=== PATIENT | female | born 1980 | race Caucasian/White ===

== ENCOUNTER 2017-05-05 19:08 | Observation (INO) ==
[2017-05-05 20:34] LABS: Bilirubin,Urine Small (Negative); Blood,Urine Negative (Negative); Color,Urine Yellow (Yellow); Glucose,Urine (UA) Normal (Normal); Ketones,Urine Negative (Negative); Leukocyte Esterase,Urine Negative (Negative); Nitrite,Urine Negative (Negative); PH,Urine 5.5 pH Units (5.0-8.0); Protein,Urine 30 mg/dL (Neg-Trace); Specific Gravity,Urine 1.023 (1.010-1.025); Urobilinogen,Urine Normal (Normal)
[2017-05-05 20:36] LABS: Bacteria,Urine None Seen per hpf (None-Few); Hyaline Casts,Urine None Seen per lpf (None-Few); Squamous Epithelial Cell,Urine Many per lpf (None-Few); WBC,Urine 0-3 per hpf (0-3)
[2017-05-05] MEDS ORDERED: 0.9 % Sodium Chloride 1,000 ML IVC ONE (20:36)
[2017-05-05] MEDS ORDERED: Ondansetron 4 MG/2 ML VIAL IVP ONE (20:36)
[2017-05-05 20:37] LABS: Clarity,Urine Slightly Hazy (Clear)
--- NOTE | 2017-05-05 20:38 | Emergency Department Note ---
Disposition Clinical Impression: Ileus, unspecified Diarrhea Qualifiers: Diarrhea type: presumed infectious Qualified Code(s): R19.7 - Diarrhea, unspecified Nausea and vomiting Qualifiers: Vomiting type: unspecified Vomiting Intractability: non-intractable Qualified Code(s): R11.2 - Nausea with vomiting, unspecified Disposition: Admitted As Inpatient Condition: Fair Time of Disposition: 23:20 Abdominal Pain HPI - General Chief Complaint: ED Abdominal Pain Stated Complaint: abd pain Time Seen by Provider: 05/05/17 20:10 Source: patient Mode of arrival: ambulatory Limitations: no limitations Nursing Notes Reviewed: Yes Vital Signs Reviewed: Yes - History of Present Illness HPI Narrative: Mrs. Berry, 36-year-old female, presents from home for evaluation of diarrhea and vomiting. She received cephalexin antibiotic 6 days ago for dental infection. 3 days ago, she began having copious loose stools with intermittent nausea and vomiting. Approximately 10+ loose stools per day and 2-3 cysts per day. No coffee-ground emesis, no hematochezia, no bilious vomiting, no hematochezia, no melena. Patient is frustrated that her persistent loose bowels and has a general abdominal age which she describes as her insides being twisted. PMH: Systemic sclerosis with raynauds ROS: Positive as above Negative: Fever, chills, chest pains, palpitations, unusual back pains, dysuria , vertigo, dyspnea, diaphoresis. Pain Scale: 7 - Related Data Home Medications Medication Instructions Recorded Confirmed Aspirin [Lo-Dose Aspirin EC] 81 mg PO DAILY 09/23/16 12/10/16 Cilostazol 50 mg PO BID 09/23/16 12/10/16 FLUoxetine HCl [PROzac] 20 mg PO DAILY 09/23/16 12/10/16 NIFEdipine [Nifedipine ER] 30 mg PO DAILY 09/23/16 12/10/16 Omeprazole 40 mg PO DAILY 09/23/16 12/10/16 Sildenafil Citrate [Revatio] 20 mg PO BID 09/23/16 12/10/16 Slow Fe 45 mg PO DAILY 09/23/16 12/10/16 Previous Rx's Medication Instructions Recorded Iron Fum,Ps/FA/Vit B with C #9 1 each PO BID #60 capsule 09/23/16 [Integra Plus Capsule] Allergies Allergy/AdvReac Type Severity Reaction Status Date / Time Hydromorphone [From Dilaudid] AdvReac Vomiting Verified 12/10/16 11:33 Penicillins AdvReac Rash Verified 12/10/16 11:33 sulfamethoxazole AdvReac Hives Verified 12/10/16 11:33 [From Bactrim] trimethoprim [From Bactrim] AdvReac Hives Verified 12/10/16 11:33 All systems ED: reviewed and negative except as stated. Review of Systems: As Per HPI Abdominal Pain PMH - Past Medical History Medical history: Reports: other Female Surgical History: Reports: Adenoidectomy, orthopedic, other Psychiatric history: Reports: no psych history - Social History Smoking status: Former smoker Alcohol use: Reports: none Drug use: Reports: none Physical Exam Vital Signs Reviewed General: Patient is alert, oriented, and in no acute distress. HEENT: No facial asymmetry. Head is normocephalic and atraumatic. PERRLA, EOMI. because of tachycardia. Trachea midline. Cardiovascular: Heart regular rate and rhythm without clicks, rubs, gallops, or murmurs. No JVD. PMI nondisplaced. Lateral radial pulses 2/4 and equal. No pedal edema. Respiratory: Symmetric chest rise with good respiratory effort. Bilateral breath sounds are clear without wheezing, crackles, or rhonchi. Abdomen: Obese. Bowel sounds present normoactive x-4 quadrants. Abdomen is soft, nondistended. Generalized tenderness with no focal point tenderness. No rebound tenderness. Musculoskeletal: Spontaneously moving all extremities. Neuro: Alert and oriented x4. Sensation light touch intact. Psych: Patient's affect is appropriate for situation. - General Limitations: no limitations General appearance: alert, in no apparent distress Course Course Narrative: Ovarian torsion, appendicitis, and obstruction unlikely spine history and physical. Concern for antibiotic-induced diarrhea versus possible colitis. We will look for C. difficile toxin, electrolyte abnormalities, renal dysfunction, and will attempt to improve the patient's symptoms while results are pending. Serum hematology is unremarkable. Serum chemistries are grossly unremarkable. Urinalysis does not indicate UTI. CT abdomen and pelvis concerning for small bowel dilation likely ileus in the context of patient's bowel movements, vomiting, and lack of surgical abdominal history. Radiology read expressed concern for small bowel obstruction. I discussed the above the patient was in agreement to admission for continued evaluation and management. I discussed the patient with on-call surgery, Dr. Fraser, who agrees to see the patient in consult. I discussed the patient with the admitting hospitalist, Dr. Aguiar, who agrees to accept the patient was surgery following. Abdomen/Pelvis CT 05/05/17 20:36 IMPRESSION: 1. Moderate dilation of small bowel, with evidence of stasis, evidenced by fecalization of contents of the distal small bowel. The small bowel obstruction is the primary concern. The etiology of that obstruction is not clear based on this exam. Consider further evaluation with small bowel follow-through. 2. There is a large amount of free pelvic fluid, again, the etiology of which is unclear. The adnexal regions are not well evaluated. 3. Small hiatal hernia. 4. Small right pleural effusion with adjacent airspace disease. D/ / Liam Trejo MD / Liam Trejo MD Interpreting Provider: Liam Trejo MD Vital Signs Temperature 97.8 F 05/05/17 19:28 Pulse Rate 102 05/05/17 19:28 Respiratory Rate 16 05/05/17 19:28 Blood Pressure 116/87 05/05/17 19:28 O2 Sat by Pulse Oximetry 97 05/05/17 19:28 Temperature 97.8 F 05/05/17 19:28 Pulse Rate 102 05/05/17 19:28 Respiratory Rate 16 05/05/17 19:28 Blood Pressure 116/87 05/05/17 19:28 O2 Sat by Pulse Oximetry 97 05/05/17 19:28 Oxygen Delivery Oxygen Delivery Room Air Abdominal Pain - Lab Data Result diagrams: 05/05/17 21:36 05/05/17 21:36 Lab Results 05/05/17 05/05/17 05/05/17 Range/Units 20:12 20:12 20:38 WBC (4.3-11.1) K/mcL RBC (3.82-4.97) M/mcL Hgb (11.5-15.4) g/dL Hct (35.3-44.9) % MCV (83.0-100.0) fL MCH (28.0-33.3) pg MCHC (31.6-35.5) g/dL RDW (11.5-14.5) % Plt Count (140-400) K/mcL MPV (9.4-12.4) fL Immature Gran % (0-4) % Seg Neutrophils % % Lymphocytes % % Monocytes % % Eosinophils % % Basophils % % Neutrophils # (1.6-8.9) K/mcL Lymphocytes # (0.6-4.6) K/mcL Monocytes # (0.0-1.3) K/mcL Eosinophils # (0.0-0.6) K/mcL Basophils # (0.0-0.2) K/mcL Sodium (136-145) mEq/L Potassium (3.5-5.1) mEq/L Chloride (98-107) mEq/L Carbon Dioxide (23-29) mEq/L BUN (6-20) mg/dL Creatinine (0.60-1.20) mg/dL Est GFR ( Amer) (> 60) Est GFR (Non-Af Amer) (> 60) BUN/Creatinine Ratio (6-26) Glucose (70-105) mg/dL Calculated Osmolality (280-300) Calcium (8.6-10.3) mg/dL Total Bilirubin (0.3-1.0) mg/dL Direct Bilirubin (0.0-0.2) mg/dL Indirect Bilirubin (0.0-1.2) mg/dL AST (13-39) Units/L ALT (7-52) Units/L Alkaline Phosphatase (34-104) Units/L Serum Total Protein (6.4-8.9) g/dL Albumin (3.5-5.7) g/dL Globulin (2.4-3.5) g/dL Albumin/Globulin Ratio (1.1-2.2) Lipase (11-82) Units/L Urine Color Yellow (Yellow) Urine Clarity Slightly Hazy (Clear) Urine pH 5.5 (5.0-8.0) pH Units Ur Specific Delancey 1.023 (1.010-1.025) Urine Protein 30 H (Neg-Trace) mg/dL Urine Glucose (UA) Normal (Normal) mg/dL Urine Ketones Negative (Negative) mg/dL Urine Blood Negative (Negative) Urine Nitrite Negative (Negative) Urine Bilirubin Small H (Negative) Urine Urobilinogen Normal (Normal) mg/dL Ur Leukocyte Esterase Negative (Negative) Urine Microscopic RBC 5-15 H (0-3) per hpf Urine Microscopic WBC 0-3 (0-3) per hpf Ur Squamous Epith Cells Many H (None-Few) per lpf Urine Bacteria None Seen (None-Few) per hpf Hyaline Casts None Seen (None-Few) per lpf Ur Culture Indicated? NO (NO) Urine Test Negative (Negative) Stl C. diff Tox B Gene Negative (Negative) 05/05/17 05/05/17 Range/Units 21:36 21:36 WBC 9.4 (4.3-11.1) K/mcL RBC 4.83 (3.82-4.97) M/mcL Hgb 14.9 (11.5-15.4) g/dL Hct 44.3 (35.3-44.9) % MCV 91.7 (83.0-100.0) fL MCH 30.8 (28.0-33.3) pg MCHC 33.6 (31.6-35.5) g/dL RDW 13.2 (11.5-14.5) % Plt Count 254 (140-400) K/mcL MPV 10.7 (9.4-12.4) fL Immature Gran % 0.3 (0-4) % Seg Neutrophils % 82.7 % Lymphocytes % 10.2 % Monocytes % 6.4 % Eosinophils % 0.3 % Basophils % 0.1 % Neutrophils # 7.8 (1.6-8.9) K/mcL Lymphocytes # 1.0 (0.6-4.6) K/mcL Monocytes # 0.6 (0.0-1.3) K/mcL Eosinophils # 0.0 (0.0-0.6) K/mcL Basophils # 0.0 (0.0-0.2) K/mcL Sodium 138 (136-145) mEq/L Potassium 3.3 L (3.5-5.1) mEq/L Chloride 104 (98-107) mEq/L Carbon Dioxide 25 (23-29) mEq/L BUN 7 (6-20) mg/dL Creatinine 0.98 (0.60-1.20) mg/dL Est GFR ( Amer) > 60 (> 60) Est GFR (Non-Af Amer) > 60 (> 60) BUN/Creatinine Ratio 7 (6-26) Glucose 118 H (70-105) mg/dL Calculated Osmolality 285 (280-300) Calcium 9.9 (8.6-10.3) mg/dL Total Bilirubin 0.5 (0.3-1.0) mg/dL Direct Bilirubin 0.0 (0.0-0.2) mg/dL Indirect Bilirubin 0.5 (0.0-1.2) mg/dL AST 23 (13-39) Units/L ALT 20 (7-52) Units/L Alkaline Phosphatase 83 (34-104) Units/L Serum Total Protein 7.7 (6.4-8.9) g/dL Albumin 4.6 (3.5-5.7) g/dL Globulin 3.1 (2.4-3.5) g/dL Albumin/Globulin Ratio 1.5 (1.1-2.2) Lipase 10 L (11-82) Units/L Urine Color (Yellow) Urine Clarity (Clear) Urine pH (5.0-8.0) pH Units Ur Specific Delancey (1.010-1.025) Urine Protein (Neg-Trace) mg/dL Urine Glucose (UA) (Normal) mg/dL Urine Ketones (Negative) mg/dL Urine Blood (Negative) Urine Nitrite (Negative) Urine Bilirubin (Negative) Urine Urobilinogen (Normal) mg/dL Ur Leukocyte Esterase (Negative) Urine Microscopic RBC (0-3) per hpf Urine Microscopic WBC (0-3) per hpf Ur Squamous Epith Cells (None-Few) per lpf Urine Bacteria (None-Few) per hpf Hyaline Casts (None-Few) per lpf Ur Culture Indicated? (NO) Urine Test (Negative) Stl C. diff Tox B Gene (Negative) Attestation Statement - Attestation Attestation: I, Edy Heller, examined this patient and my medical decision-making was reviewed with the DYEING MACHINE TENDER/PA/Advanced Practice Nurse/Resident Physician. I agree with the documented findings, disposition and treatment plan as described except to the extent set forth below. 36-year-old female presents emergency Department with concerns of abdominal pain. Patient's pain is generalized and she is, unable to localize her symptoms. On exam she does not have rigidity however she is guarding diffusely. CT of the abdomen and pelvis shows a possible small bowel obstruction and a large amount of fluid within the pelvis. It is unclear the etiology of the CT findings. It is unlikely a small bowel obstruction as patient has not had a history of significant abdominal surgeries however patient will require admission to hospital for further care and evaluation of her abdominal pain and evaluation by general surgery for small bowel obstruction versus ileus.
[2017-05-05 21:49] LABS: Basophils % 0.1 %; Eosinophils % 0.3 %; Hematocrit 44.3 % (35.3-44.9); Hemoglobin 14.9 g/dL (11.5-15.4); Immature Granulocytes % 0.3 % (0-4); Lymphocytes % 10.2 %; Mean Corpuscular HGB Conc 33.6 g/dL (31.6-35.5); Mean Corpuscular Hemoglobin 30.8 pg (28.0-33.3); Mean Corpuscular Volume 91.7 fL (83.0-100.0); Mean Platelet Volume 10.7 fL (9.4-12.4); Monocytes # 0.6 K/mcL (0.0-1.3); Monocytes % 6.4 %; Neutrophils # 7.8 K/mcL (1.6-8.9); Platelet Count 254 K/mcL (140-400); Red Blood Count 4.83 M/mcL (3.82-4.97); Red Cell Distribution Width 13.2 % (11.5-14.5); Segmented Neutrophils % 82.7 %
[2017-05-05 22:11] LABS: Alanine Aminotransferase 20 Units/L (7-52); Albumin 4.6 g/dL (3.5-5.7); Albumin/Globulin Ratio 1.5 (1.1-2.2); Alkaline Phosphatase 83 Units/L (34-104); Aspartate Amino Transferase 23 Units/L (13-39); BUN/Creatinine Ratio 7 (6-26); Bilirubin,Indirect 0.5 mg/dL (0.0-1.2); Bilirubin,Total 0.5 mg/dL (0.3-1.0); Blood Urea Nitrogen 7 mg/dL (6-20); Calcium 9.9 mg/dL (8.6-10.3); Carbon Dioxide 25 mEq/L (23-29); Chloride 104 mEq/L (98-107); Globulin 3.1 g/dL (2.4-3.5); Glucose 118 mg/dL (70-105); Lipase 10 Units/L (11-82); Osmolality,Calculated 285 (280-300); Potassium 3.3 mEq/L (3.5-5.1); Sodium 138 mEq/L (136-145); Total Protein 7.7 g/dL (6.4-8.9); eGFR For African Americans > 60 (> 60); eGFR For Non-African Americans > 60 (> 60)
[2017-05-05] MEDS ORDERED: Ondansetron 4 MG/2 ML VIAL IVP PRN (22:46)
[2017-05-05] MEDS ORDERED: Naloxone 0.4 MG/ML INJ IVP PRN (22:46)
[2017-05-05] MEDS ORDERED: 0.9 % Sodium Chloride w KCl 20 MEQ/1,000 ML MLS IVC SCH (23:00)
--- NOTE | 2017-05-06 | Internal Med History&Physical ---
<Erwin Clement - Last Filed: 05/06/17 00:24> Date of Encounter: 05/06/17 Time of Encounter: 23:51 Assessment and Plan (1) Diarrhea Current visit: Yes Status: Acute Nausea, vomiting, diarrhea for approximately 3 days' duration, intractable Source likely infectious in nature/colitis considering recent treatment with Keflex C. difficile is negative at this time, no obvious signs of systemic infection I will start the patient on ciprofloxacin and Flagyl We will rehydrate with IV fluids Qualifiers: Diarrhea type: presumed infectious Qualified Code(s): R19.7 - Diarrhea, unspecified (2) Nausea and vomiting Current visit: Yes Status: Acute Nausea/non-bilious vomiting likely secondary to GI infection vs. colitis Patient remains NPO due to abdominal pain We will give IVF, Zofran PRN for nausea Qualifiers: Vomiting type: cyclical vomiting Vomiting Intractability: non-intractable Qualified Code(s): G43.A0 - Cyclical vomiting, not intractable (3) Abdominal pain Current visit: Yes Status: Acute Abdominal pain, severe and generalized likely secondary to enterocolitis vs ileus, Currently stable CT abdomen/pelvis shows fecalization of distal small bowel which likely represents ileus Patient has voluntary guarding with exquisite tenderness to palpation of all four quadrants of the abdomen, upper > lower SBO is low on differential as patient has no history of abdominal surgery Surgery (Dr. Fraser) was consulted from the ED and will see the patient in the morning We will maintain NPO diet, provide pain management, monitor vital signs, and give zofran for nausea Qualifiers: Abdominal location: generalized Qualified Code(s): R10.84 - Generalized abdominal pain (4) Free fluid in pelvis Current visit: Yes Status: Acute Free fluid in pelvis as demonstrated by CT Abdomen/Pelvis, uncertain etiology The patient does appear to have a GI infection, however this is not necessarily a likely source for fluid in the pelvis The Adnexal region was not well evaluated on CT, so we will order a pelvic ultrasound to rule out ovarian pathology as a source for ascites Significantly, the patient had negative urine test, and negative UA Pending pelvic US results, we will consult Fixed Route Operator in the AM (5) Systemic scleroses Current visit: Yes Status: Acute Currently stable, continue home meds (6) Hypokalemia Current visit: Yes Status: Acute IVF with 20mEQ potassium 40mEq potassium chloride IVPB Riders (7) DVT prophylaxis Current visit: Yes Status: Acute SQ Heparin Internal Medicine - H&P: HPI Chief complaint: Abdominal pain Admitted From: Emergency Dept Plans for Post Hospital Care: Home History of present illness: Ms. Berry is a 36 year old female with history of systemic sclerosis who presents to the ED with three day history of severe abdominal pain, intractable diarrhea and nausea/vomiting. She says that she saw a dentist about 6 days ago for a dental infection and was given keflex, which she says she's taken many times. About three days ago she began to have severe diarrhea that began as loose stools and has transitioned to watery diarrhea. She has been experiencing this 15-20 time each day, and feels that she has been running to the bathroom constantly. She says that shortly after that began, she also started to have nausea and vomiting. She has been experiencing severe abdominal pain with this as well, 10/13 which is constant, non-radiating, and feels like severe menstrual cramps that are unremitting. The pain is primarily located in her upper abdomen , but she says that there is some tenderness in her lower abdomen as well. She says the pain does not radiate anywhere. Nothing makes the pain any better, but lying on either side seems to amplify the pain very significantly. She does say that the last thing she ate was ramen noodles earlier today which she was able to hold down, but that she has not been able to keep food down prior to that. She denies hematemasis, hematochezia or melena. She has not experienced any chest pains, shortness of breath, or changes in mental status. She also denies any urinary symptoms. Finally, she denies any abdominal surgeries. She has no other acute complains. Past Med Surg Social Fam HX - Past Medical History Medical history: other Psychiatric history: no psych history - Social History Smoking Status: Former smoker Smokeless Tobacco Status: No Alcohol use: none Drug use: none Internal Medicine - H&P: Meds Aspirin [Lo-Dose Aspirin EC] 81 mg PO DAILY 09/23/16 [History] Cilostazol 50 mg PO BID 09/23/16 [History] FLUoxetine HCl [PROzac] 20 mg PO DAILY 09/23/16 [History] Iron Fum,Ps/FA/Vit B with C #9 [Integra Plus Capsule] 1 each PO BID #60 capsule 09/23/16 [Rx] NIFEdipine [Nifedipine ER] 30 mg PO DAILY 09/23/16 [History] Omeprazole 40 mg PO DAILY 09/23/16 [History] Sildenafil Citrate [Revatio] 20 mg PO BID 09/23/16 [History] Slow Fe 45 mg PO DAILY 09/23/16 [History] 3 Allergy/AdvReac Type Severity Reaction Status Date / Time Hydromorphone [From Dilaudid] AdvReac Vomiting Verified 12/10/16 11:33 Penicillins AdvReac Rash Verified 12/10/16 11:33 sulfamethoxazole AdvReac Hives Verified 12/10/16 11:33 [From Bactrim] trimethoprim [From Bactrim] AdvReac Hives Verified 12/10/16 11:33 All Systems PM: A 10-system review of systems was performed and is negative for pertinent findings except as documented above in the HPI. Review of systems: Constitutional: Denies fevers, chills, weight loss, generalized fatigue Head/Neck: Denies JONES, neck stiffness EENT: Denies vision changes/blurriness, rhinorrhea, congestion, sore throat CVS: Denies chest pain, palpitations, GONZALEZ, orthopnea, edema, PND Pulm: Denies SOB, cough, sputum, wheezing GI: Admits to abdominal pain, nausea, vomiting, watery diarrhea. Denies constipation, melena, hematochezia or hematemasis : Denies dysuria, increased frequency, urgency, hematuria Heme: Denies ease of bleeding or bruising MSK: Denies joint pain, limited ROM Skin: Denies rashes, ulcers, color changes Neuro: Denies JONES, paresthesias, focal deficits, ataxia - Constitutional Vitals: Temp Pulse Resp BP Pulse Ox 97.8 F 102 16 116/85 97 05/05/17 19:28 05/05/17 19:28 05/05/17 23:29 05/05/17 23:29 05/05/17 19:28 Exam: Gen.: Vitals noted. No acute distress. AAOx3 HEENT: oropharynx clear, Normocephalic, atraumatic Neck: Supple. No adenopathy. Cardiac: RRR, no murmur, +S1/S2 Pulmonary: CTA bilaterally, no wheezes, rales or rhonchi, equal chest expansion Abdomen: soft, BS noted and hyperactive, diffusely tender with voluntary guarding in the epigastric and RUQ, with no guarding in the lower abdomen/pelvis Back: Nontender throughout. MSK: ROM intact, no joint swelling noted Extremities: no BLE edema, nontender calf, no cyanosis or clubbing Neuro: A&Ox3, moves all extremities, no focal deficits Psych: Appropriate mood and behavior Internal Med - H&P Results - Labs CBC & Chem 7: 05/05/17 21:36 05/05/17 21:36 <Hiro Fajardo - Last Filed: 05/06/17 05:32> Date of Encounter: 05/06/17 Internal Medicine - H&P: HPI History of present illness: Ms. Berry is a 36 year old female All Systems PM: A 10-system review of systems was performed and is negative for pertinent findings except as documented above in the HPI. - Constitutional Vitals: Temp Pulse Resp BP Pulse Ox 98.0 F 73 16 100/69 94 05/06/17 03:30 05/06/17 03:30 05/06/17 03:30 05/06/17 03:30 05/06/17 03:30 Internal Med - H&P Results - Labs CBC & Chem 7: 05/06/17 04:31 05/06/17 04:31 Labs: Short CBC 05/06/17 Range/Units 04:31 WBC 5.9 (4.3-11.1) K/mcL Hgb 12.3 D (11.5-15.4) g/dL Hct 38.0 (35.3-44.9) % Plt Count 206 (140-400) K/mcL Neutrophils # 4.1 (1.6-8.9) K/mcL BMP 05/06/17 04:31 Sodium 138 Potassium 3.8 Chloride 109 H Carbon Dioxide 26 BUN 6 Creatinine 0.82 Glucose 114 H Calcium 8.3 L - Attending Attestation I have seen and examined this patient independently. I have discussed with resident physician Dr. Clement regarding the management plan. Agree with the documentation.
[2017-05-06] MEDS ORDERED: Potassium Chloride 40 MEQ, Lidocaine 1% 2 ML in D5% in Water 500 ML IVPB ONE (00:20)
[2017-05-06] MEDS ORDERED: Naloxone 0.4 MG/ML INJ IVP PRN (00:20)
[2017-05-06] MEDS ORDERED: Ketorolac 30 MG/ML VIAL IVP PRN (00:20)
[2017-05-06] MEDS ORDERED: OXYCODONE Oral CONC 10 MG/0.5 ML ORAL.SYG SL PRN ×2 (00:20)
[2017-05-06] MEDS: MetroNIDAZOLE 500 MG/100 ML 500 MG/100 ML BAG IVPB SCH ×4 (01:11→21:10)
[2017-05-06 05:15] LABS: Basophils % 0.3 %; Eosinophils # 0.1 K/mcL (0.0-0.6); Eosinophils % 1.5 %; Immature Granulocytes % 0.2 % (0-4); Lymphocytes % 17.6 %; Mean Corpuscular HGB Conc 32.4 g/dL (31.6-35.5); Mean Corpuscular Hemoglobin 30.4 pg (28.0-33.3); Mean Corpuscular Volume 94.1 fL (83.0-100.0); Monocytes # 0.6 K/mcL (0.0-1.3); Monocytes % 9.6 %; Neutrophils # 4.1 K/mcL (1.6-8.9); Platelet Count 206 K/mcL (140-400); Red Blood Count 4.04 M/mcL (3.82-4.97); Red Cell Distribution Width 13.2 % (11.5-14.5); Segmented Neutrophils % 70.8 %
[2017-05-06 05:16] LABS: Hemoglobin 12.3 g/dL (11.5-15.4)
[2017-05-06 05:21] LABS: BUN/Creatinine Ratio 7 (6-26); Blood Urea Nitrogen 6 mg/dL (6-20); Calcium 8.3 mg/dL (8.6-10.3); Carbon Dioxide 26 mEq/L (23-29); Chloride 109 mEq/L (98-107); Glucose 114 mg/dL (70-105); Magnesium 2.1 mg/dL (1.6-2.6); Osmolality,Calculated 284 (280-300); Potassium 3.8 mEq/L (3.5-5.1); Sodium 138 mEq/L (136-145); eGFR For African Americans > 60 (> 60); eGFR For Non-African Americans > 60 (> 60)
[2017-05-06] MEDS: Pantoprazole 40 MG VIAL IVP SCH ×2 (05:34→17:08)
[2017-05-06] MEDS: *HR* Heparin 5,000 UNIT/ML VIAL SQ SCH ×2 (05:34→17:08)
[2017-05-06] MEDS: Sildenafil Citrate 20 MG TABLET PO SCH ×2 (10:02→21:11)
[2017-05-06] MEDS: FLUoxetine 20 MG CAPSULE PO SCH (10:02)
[2017-05-06] MEDS: Aspirin Enteric Coated 81 MG Tablet PO SCH (10:03)
[2017-05-06] MEDS: NIFEdipine XL (24 HR) 30 MG TAB.ER.24 PO SCH (10:03)
--- NOTE | 2017-05-06 10:34 | Internal Med Progress Note ---
<ScottyAmrik - Last Filed: 05/06/17 14:02> Date of Encounter: 05/06/17 Time of Encounter: 10:32 - Assessment and plan (1) Small bowel obstruction Current Visit: Yes Status: Acute Assessment and plan: CT ab/pel demonstrated fecalization of distal small bowel with concern for obstruction/ileus Surgery consulted, appreciate recommendations Patient is NPO currently in preparation for possible surgery (2) Diarrhea Current Visit: Yes Status: Acute Assessment and plan: Diarrhea has resolved per patient. C. diff panel negative - Continue cipro/flagyl day 2 - Continue IV fluids Qualifiers: Diarrhea type: presumed infectious Qualified Code(s): R19.7 - Diarrhea, unspecified (3) Nausea and vomiting Current Visit: Yes Status: Acute Assessment and plan: Patient is NPO - Continue Zofran as needed for nausea. - Continue IVF Qualifiers: Vomiting type: cyclical vomiting Vomiting Intractability: non-intractable Qualified Code(s): G43.A0 - Cyclical vomiting, not intractable (4) Abdominal pain Current Visit: Yes Status: Acute Assessment and plan: Abdominal pain is unchanged per patient. Likely due to enterocolitis vs ileus. Currently stable. CT abdomen/pelvis shows fecalization of distal small bowel which may be obstruction from ileus Surgery has been consulted. Maintain NPO for now. Qualifiers: Abdominal location: generalized Qualified Code(s): R10.84 - Generalized abdominal pain (5) Free fluid in pelvis Current Visit: Yes Status: Acute Assessment and plan: Free fluid in pelvis as demonstrated by CT Abdomen/Pelvis, uncertain etiology Ulstrasound perfrpmed this morning confirmed fluid presence with follicular changes in ovaries The patient had negative urine test, and negative UA Will consider OBGYN consult (6) Systemic scleroses Current Visit: Yes Status: Acute Assessment and plan: Continue home meds (7) Hypokalemia Current Visit: Yes Status: Acute Assessment and plan: K 3.3 on admission, now up to 3.8 - Continue potassium supplementation and monitoring as needed (8) DVT prophylaxis Current Visit: Yes Status: Acute Assessment and plan: SQ heparin - Subjective Interval history: Patient seen and examined at bedside. Patient is laying in bed playing games on her phone, she is very pleasant. She states that she is still experiencing abdominal pain that is unchanged from yesterday. She does state that her diarrhea has resolved. She states that her abdominal pain is diffuse, but worse along the upper quadrants of her abdomen. Patient has the hiccups and states that she is hungry, but understands that she cannot eatr at the moment. - Constitutional Vitals: Temp Pulse Resp BP Pulse Ox 97.7 F 72 14 102/68 93 05/06/17 07:06 05/06/17 07:06 05/06/17 07:06 05/06/17 07:06 05/06/17 07:06 General appearance: Present: cooperative, A&O X 3, pleasant, answers questions appropriately - Head Head exam: Present: normal inspection - Neck Neck exam general surgery: Present: normal inspection - Respiratory Respiratory exam: Present: CTAB. Absent: accessory muscle use, rales, rhonchi, wheezes - Cardiovascular Cardiovascular exam: Present: RRR - GI/Abdominal GI/Abdominal exam: Present: distended, soft, tenderness (tenderness diffusely to palpation, but worse in LLQ, RUQ) - Skin Skin exam: Present: dry, normal color, warm Internal Medicine: Result - Labs CBC & Chem 7: 05/06/17 04:31 05/06/17 04:31 Labs: Short CBC 05/06/17 Range/Units 04:31 WBC 5.9 (4.3-11.1) K/mcL Hgb 12.3 D (11.5-15.4) g/dL Hct 38.0 (35.3-44.9) % Plt Count 206 (140-400) K/mcL Neutrophils # 4.1 (1.6-8.9) K/mcL BMP 05/06/17 04:31 Sodium 138 Potassium 3.8 Chloride 109 H Carbon Dioxide 26 BUN 6 Creatinine 0.82 Glucose 114 H Calcium 8.3 L - Impressions Impressions Pelvis Ultrasound 05/06/17 09:00 IMPRESSION: Nonspecific moderate free fluid throughout the pelvis. Follicular changes within the ovaries with normal Doppler flow. D/ / Corey Wall MD / Corey Wall MD Interpreting Provider: Corey Wall MD Consult Discharge Plan - Plan Referrals: Mckeon,Kaylah L, DANCE THERAPIST [Primary Care Provider] - <Denis Birmingham H - Last Filed: 05/06/17 14:30> Date of Encounter: 05/06/17 - Constitutional Vitals: Temp Pulse Resp BP Pulse Ox 97.8 F 89 16 102/71 98 05/06/17 11:19 05/06/17 11:19 05/06/17 11:19 05/06/17 11:19 05/06/17 11:19 Internal Medicine: Result - Labs CBC & Chem 7: 05/06/17 04:31 05/06/17 04:31 Labs: Short CBC 05/06/17 Range/Units 04:31 WBC 5.9 (4.3-11.1) K/mcL Hgb 12.3 D (11.5-15.4) g/dL Hct 38.0 (35.3-44.9) % Plt Count 206 (140-400) K/mcL Neutrophils # 4.1 (1.6-8.9) K/mcL BMP 05/06/17 04:31 Sodium 138 Potassium 3.8 Chloride 109 H Carbon Dioxide 26 BUN 6 Creatinine 0.82 Glucose 114 H Calcium 8.3 L - Impressions Impressions Pelvis Ultrasound 05/06/17 09:00 IMPRESSION: Nonspecific moderate free fluid throughout the pelvis. Follicular changes within the ovaries with normal Doppler flow. D/ / Corey Wall MD / Corey Wall MD Interpreting Provider: Corey Wall MD - Attending Attestation Possible acute enteritis, not symptomatic for obstruction Passing gas No need of NG tube for now as Anterior etiology of free fluid in pelvis, possibly secondary to generalized inflammation of the small bowel Continue Flagyl and Cipro IV May start clears, may go back to nothing by mouth is more symptomatic Switch hydration to D5 half normal saline with 10 mEq of potassium May send a GI panel is able to provide a stool sample I examined this patient and my medical decision-making was reviewed with the Resident Physician. I agree with the documented findings, disposition and treatment plan as described except to the extent set forth below.
[2017-05-06] MEDS ORDERED: *HR* Dextrose 50 % in Water (Syg) 50 ML SYRINGE IVP PRN (11:44)
[2017-05-06] MEDS: D5% in 0.45% NACL w KCl 10 MEQ/1,000 ML MLS IVC SCH ×2 (14:09→22:27)
--- NOTE | 2017-05-06 17:44 | General Surgery Consult Note ---
Date of Encounter: 05/06/17 Time of Encounter: 16:50 History of Present Illness Consult date: 05/05/17 Reason for consult: abdominal pain (abnormal CT - possible SBO) Requesting physician: Familia Aguiar History of present illness: 36 yo, referred for surgical evaluation after presenting to the [facility] ED with three-day history of nausea/vomiting and abdominal pain. The patient describes diagnosis of a dental abscess approximately one week ago for which antibiotics initiated. The patient then developed diarrhea with progression to the present symptoms which prompted her presentation to the emergency department. Blood work was fairly unremarkable with a normal white count of 9.4; normal H&H and differential. Potassium was 3.3 otherwise electrolytes, BUN, creatinine were within normal limits. Urinalysis was notable for specific gravity of 1.023, pH 5.5 with small bilirubin, 5-15 RBC/ hpf and 0-3 WBC/hpf. CT abdomen/pelvis was notable for small right pleural effusion with adjacent airspace disease; dilated , fluid-filled small bowel with wall thickening distally. The colon contained fluid but without wall thickening. A large amount of fluid in the pelvis was also noted. The reading radiologist expressed concern for small bowel obstruction prompting a surgical referral. The CT was personally reviewed with [facility]. The findings were as noted above but the wall thickening involving the distal small bowel is more consistent with a terminal ileitis. Past medical history: an unspecified vasculitis Surgical history: None Allergies: Penicillin, sulfa, hydromorphone. Penicillin causing pruritus; sulfa and hydromorphone resulting in nausea/vomiting Medications: Aspirin 81 mg by mouth daily Cilostazol 50 mg by mouth twice a day Fluoxetine 20 mg by mouth daily Iron with vitamin C (Integra plus) 1 by mouth twice a day Nifedipine 30 mg by mouth daily Omeprazole 40 mg by mouth daily Sildenafil 20 mg by mouth twice a day Social history: , ; patient is a former smoker; she smoked 1 pack daily for 22 years; she quit approximate 4 years ago. The patient denies any alcohol or illicit drug use Physical examination: 36-year-old female, who appears slightly older than her stated age, resting comfortably in her hospital bed. The patient is 1.57 m tall, 82.2 kg, BMI 33.1 The patient indicates she is feeling better than on presentation to the emergency department last evening. No further nausea or emesis. The patient has been afebrile, currently 98.3; pulse 68, respirations 16, blood pressure 102/67. SPO2 on room air 94-98% Skin: Warm without obvious jaundice Lungs: Clear, no obvious pain on deep inspiration Cardiac: Regular rate, no appreciable murmur Abdomen: Minimal tenderness in the right lower quadrant but no discernible intra-abdominal masses; no obvious hepatosplenomegaly. No rebound. Extremities: No obvious clubbing cyanosis or edema. Repeat labs: White count 5.9, hemoglobin [id number](with hydration) differential remains normal Electrolytes, BUN, creatinine remain stable; hypokalemia was corrected to 3.8. Impression: 36 yo with new onset abd pain, N/V after initiation ATB for dental abscess CT findings suggestive ileitis causing more prox small bowel to be distended and fluid filled. Equalization of the contents in the distal small bowel suggestive of stasis. The etiology of which has yet to be determined. The possibility of Crohn's disease or other inflammatory bowel disease should be considered. Patient has improved since admission with IV fluids, Cipro, and metronidazole. Recommendations: Continue Cipro and metronidazole - may convert to oral antibiotics once the patient's abdominal pain has resolved Continue to allow clear liquids and less nausea and vomited again resume. Hold on advancing diet until abdominal pain resolved. I will follow along with you and make further recommendations as the patient' s condition dictates. Past Med Surg Social Fam HX - Past Medical History Medical history: other Psychiatric history: no psych history - Social History Smoking Status: Former smoker Smokeless Tobacco Status: No Alcohol use: none Drug use: none - Family History Father Living Status: Still Living Hx Family Respiratory Disorders: Yes (emphysema) Mother Living Status: Still Living Hx Family Cardiac Disorders: Yes (valve and stents) Hx Family Respiratory Disorders: Yes Hx Family Endocrine Disorder: Yes (dm) Medications and Allergies Aspirin [Lo-Dose Aspirin EC] 81 mg PO DAILY 09/23/16 [History] Cilostazol 50 mg PO BID 09/23/16 [History] FLUoxetine HCl [PROzac] 20 mg PO DAILY 09/23/16 [History] Iron 45 mg PO DAILY 09/23/16 [History] Iron Fum,Ps/FA/Vit B with C #9 [Integra Plus Capsule] 1 each PO BID #60 capsule 09/23/16 [Rx] NIFEdipine [Nifedipine ER] 30 mg PO DAILY 09/23/16 [History] Omeprazole 40 mg PO DAILY 09/23/16 [History] Sildenafil Citrate [Revatio] 20 mg PO BID 09/23/16 [History] cephALEXin [Keflex] 2 cap PO BID 05/06/17 [History] 3 Allergy/AdvReac Type Severity Reaction Status Date / Time Hydromorphone [From Dilaudid] AdvReac Vomiting Verified 12/10/16 11:33 Penicillins AdvReac Rash Verified 12/10/16 11:33 sulfamethoxazole AdvReac Hives Verified 12/10/16 11:33 [From Bactrim] trimethoprim [From Bactrim] AdvReac Hives Verified 12/10/16 11:33 Review of Systems All systems PM: A 10-system review of systems was performed and is negative for pertinent findings except as documented above in the HPI. General Surgery Exam Initial Vital Signs Temp Pulse Resp BP Pulse Ox 97.8 F 102 16 116/87 97 05/05/17 19:28 05/05/17 19:28 05/05/17 19:28 05/05/17 19:28 05/05/17 19:28 Exam Initial Vital Signs Temp Pulse Resp BP Pulse Ox 97.8 F 102 16 116/87 97 05/05/17 19:28 05/05/17 19:28 05/05/17 19:28 05/05/17 19:28 05/05/17 19:28 Results - Labs 05/06/17 04:31 05/06/17 04:31 Abnormal lab results Chloride 109 mEq/L (98-107) H 05/06/17 04:31 Glucose 114 mg/dL (70-105) H 05/06/17 04:31 POC Glucose 103 (58-89) H 05/06/17 05:37 Calcium 8.3 mg/dL (8.6-10.3) L 05/06/17 04:31 Lipase 10 Units/L (11-82) L 05/05/17 21:36 Urine Protein 30 mg/dL (Neg-Trace) H 05/05/17 20:12 Urine Bilirubin Small (Negative) H 05/05/17 20:12 Urine Microscopic RBC 5-15 per hpf (0-3) H 05/05/17 20:12 Ur Squamous Epith Cells Many per lpf (None-Few) H 05/05/17 20:12 Diabetes panel 05/06/17 Range/Units 04:31 Sodium 138 (136-145) mEq/L Potassium 3.8 (3.5-5.1) mEq/L Chloride 109 H (98-107) mEq/L Carbon Dioxide 26 (23-29) mEq/L BUN 6 (6-20) mg/dL Creatinine 0.82 (0.60-1.20) mg/dL Glucose 114 H (70-105) mg/dL Calcium 8.3 L (8.6-10.3) mg/dL Calcium panel 05/06/17 Range/Units 04:31 Calcium 8.3 L (8.6-10.3) mg/dL Pituitary panel 05/06/17 Range/Units 04:31 Sodium 138 (136-145) mEq/L Potassium 3.8 (3.5-5.1) mEq/L Chloride 109 H (98-107) mEq/L Carbon Dioxide 26 (23-29) mEq/L BUN 6 (6-20) mg/dL Creatinine 0.82 (0.60-1.20) mg/dL Glucose 114 H (70-105) mg/dL Calcium 8.3 L (8.6-10.3) mg/dL Adrenal panel 05/06/17 Range/Units 04:31 Sodium 138 (136-145) mEq/L Potassium 3.8 (3.5-5.1) mEq/L Chloride 109 H (98-107) mEq/L Carbon Dioxide 26 (23-29) mEq/L BUN 6 (6-20) mg/dL Creatinine 0.82 (0.60-1.20) mg/dL Glucose 114 H (70-105) mg/dL Calcium 8.3 L (8.6-10.3) mg/dL All other labs normal. Consult Discharge Plan - Plan Referrals: Kaylah Mckeon, KANDACE [Primary Care Provider] -
[2017-05-07] MEDS: MetroNIDAZOLE 500 MG/100 ML 500 MG/100 ML BAG IVPB SCH ×3 (01:57→13:05)
[2017-05-07] MEDS: *HR* Heparin 5,000 UNIT/ML VIAL SQ SCH (05:32)
[2017-05-07] MEDS: Pantoprazole 40 MG VIAL IVP SCH (05:32)
[2017-05-07 06:38] LABS: BUN/Creatinine Ratio 5 (6-26); Blood Urea Nitrogen 4 mg/dL (6-20); Calcium 8.5 mg/dL (8.6-10.3); Carbon Dioxide 25 mEq/L (23-29); Chloride 107 mEq/L (98-107); Glucose 107 mg/dL (70-105); Osmolality,Calculated 281 (280-300); Potassium 3.7 mEq/L (3.5-5.1); Sodium 137 mEq/L (136-145); eGFR For African Americans > 60 (> 60); eGFR For Non-African Americans > 60 (> 60)
[2017-05-07 06:47] VITALS: BP 102/70
[2017-05-07] MEDS: D5% in 0.45% NACL w KCl 10 MEQ/1,000 ML MLS IVC SCH (06:56)
[2017-05-07] MEDS: NIFEdipine XL (24 HR) 30 MG TAB.ER.24 PO SCH (07:59)
[2017-05-07 08:05] LABS: Basophils % 0.6 %; Eosinophils # 0.1 K/mcL (0.0-0.6); Eosinophils % 2.1 %; Hematocrit 36.5 % (35.3-44.9); Hemoglobin 11.7 g/dL (11.5-15.4); Immature Granulocytes % 0.3 % (0-4); Lymphocytes # 0.7 K/mcL (0.6-4.6); Mean Corpuscular HGB Conc 32.1 g/dL (31.6-35.5); Mean Corpuscular Hemoglobin 30.2 pg (28.0-33.3); Mean Corpuscular Volume 94.3 fL (83.0-100.0); Mean Platelet Volume 11.3 fL (9.4-12.4); Monocytes # 0.4 K/mcL (0.0-1.3); Monocytes % 10.4 %; Neutrophils # 2.2 K/mcL (1.6-8.9); Platelet Count 181 K/mcL (140-400); Red Blood Count 3.87 M/mcL (3.82-4.97); Segmented Neutrophils % 64.6 %
--- NOTE | 2017-05-07 08:51 | Discharge Summary ---
<Amrik Fajardo - Last Filed: 05/07/17 09:19> Date of Encounter: 05/07/17 Time of Encounter: 08:33 - Discharge Diagnosis (1) Ileus, unspecified Priority: Primary Status: Acute (2) Diarrhea Priority: Secondary Status: Resolved Qualifiers: Diarrhea type: presumed infectious Qualified Code(s): R19.7 - Diarrhea, unspecified (3) Nausea and vomiting Priority: Secondary Status: Acute Qualifiers: Vomiting type: cyclical vomiting Vomiting Intractability: non-intractable Qualified Code(s): G43.A0 - Cyclical vomiting, not intractable (4) Abdominal pain Priority: Secondary Status: Acute Qualifiers: Abdominal location: generalized Qualified Code(s): R10.84 - Generalized abdominal pain (5) Free fluid in pelvis Priority: Secondary Status: Acute (6) Systemic scleroses Priority: Secondary Status: Acute (7) Hypokalemia Priority: Secondary Status: Acute (8) DVT prophylaxis Priority: Secondary Status: Acute - Discharge Medications Prescriptions: Ondansetron ODT [Zofran ODT] 4 mg SL Q4HR #20 tab.rapdis Ciprofloxacin [Cipro] 500 mg PO BID #10 tablet metroNIDAZOLE [Flagyl] 500 mg PO TID #15 tablet Home Medications: Aspirin [Lo-Dose Aspirin EC] 81 mg PO DAILY 09/23/16 [History] Cilostazol 50 mg PO BID 09/23/16 [History] FLUoxetine HCl [Prozac] 20 mg PO DAILY 09/23/16 [History] Iron 45 mg PO DAILY 09/23/16 [History] Iron Fum,Ps/FA/Vit B with C #9 [Integra Plus Capsule] 1 each PO BID #60 capsule 09/23/16 [Rx] NIFEdipine [Nifedipine ER] 30 mg PO DAILY 09/23/16 [History] Omeprazole 40 mg PO DAILY 09/23/16 [History] Sildenafil Citrate [Revatio] 20 mg PO BID 09/23/16 [History] cephALEXin [Keflex] 2 cap PO BID 05/06/17 [History] Ciprofloxacin [Cipro] 500 mg PO BID #10 tablet 05/07/17 [Rx] Ondansetron ODT [Zofran ODT] 4 mg SL Q4HR #20 tab.rapdis 05/07/17 [Rx] metroNIDAZOLE [Flagyl] 500 mg PO TID #15 tablet 05/07/17 [Rx] Allergies/Adverse Reactions: 3 Allergy/AdvReac Type Severity Reaction Status Date / Time Hydromorphone [From Dilaudid] AdvReac Vomiting Verified 12/10/16 11:33 Penicillins AdvReac Rash Verified 12/10/16 11:33 sulfamethoxazole AdvReac Hives Verified 12/10/16 11:33 [From Bactrim] trimethoprim [From Bactrim] AdvReac Hives Verified 12/10/16 11:33 Procedures/tests Complete & Pending: Procedures Performed prior 72 hours Category Date Time Status pelvic ultrasound complete [US pelvic complete] [US] Exams 05/06/17 09:00 Completed Routine Date of admission: 05/05/17 22:42 Primary care physician: Kaylah Mckeon CNP Discharging clinician: Amrik Fajardo Anticipated date of discharge: 05/07/17 - Patient Status Disposition: Home, Self-Care Condition: Fair Functional capacity at discharge: independent ambulation Overall status at discharge: patient is progressing back to baseline - Discharge Instructions Follow Up With: Kaylah Mckeon CNP [Primary Care Provider] - 05/14/17 1:00 pm Additional Instructions: Please follow up with your PCP within 1 week of discharge Take antibiotics for additional 5 days - Diet and Activity Activity: increase activity as tolerated Diet: advance to your usual diet Hospital course: Ms. Berry is a 36 year old female who presented to [facility] Ed on 05/05 with a chief complaint of diarrhea and vomiting along with abdominal pain. She had recently received Kefflex 6 days prior to arrival at [facility] for a dental abscess. Three days prior to presentation, she began having copious loose stools with intermittent nausea and vomiting. she was complaining of 10+ loose stools/day at admission. She was complaining of severe generalized abdominal pain which she described as twisting. CT ordered by ED showed small bowel dilation with chief concern being of a small bowel obstruction. There was also a large amount of pelvic free fluid noted. Patient was admitted on cipro/flagyl for presumed infectious diarrhea. C. diff panel was negative. On physical exam 05/06, patient was complaining of severe diffuse upper abdominal ain, worse in the LUQ. Patient was exquisitely tender to palpation with voulntary guarding. Surgery was consulted for possible SBO and a pelvic US was ordered due to the free fluid. US found Nonspecific moderate free fluid throughout the pelvis with normal Doppler flow. Surgery (Dr. Fraser) reviewed CT with radiologist and noted that CT findings were more consistent with enteritis. Surgery recommended to continue cipro/metronidazole and to continue with clear liquids. Recommended to not advance diet until abdominal pain resolved. This morning patient is resting comfortably and is not complaining of acute abdominal pain. Palpation of the abdomen is largely non-tender with the exception of the LUQ which the patient states is "a little sore, and way better than yesterday." She is no longer guarding. Patient is agreeable to discharge today and agrees to follow up outpatient. She was instructed to return to the ED immediately if symptoms were to worsen or not improve. Patient communicates her understanding and is agreeable to plan. Patient will be going home on 5 days additional of PO Cipro/Flagyl and Zoforan for symptomatic relief. - Time Spent with Patient Total time spent providing and/or coordinating discharge services: Greater than 30 minutes - Constitutional Vitals: Temp Pulse Resp BP Pulse Ox 98.3 F 69 15 102/70 94 05/07/17 06:46 05/07/17 06:46 05/07/17 06:46 05/07/17 06:46 05/07/17 06:46 General appearance: Present: cooperative, A&O X 3, pleasant, answers questions appropriately - Head Head exam: Present: atraumatic, normocephalic - Eye Eye exam: Present: PERRL, conjuntiva pink, sclera anicteric - Neck Neck exam general surgery: Present: supple, trachea midline. Absent: lymphadenopathy - Respiratory Respiratory exam: Present: CTAB. Absent: accessory muscle use, rales, rhonchi, wheezes - Cardiovascular Cardiovascular exam: Present: RRR, +S1, +S2. Absent: diastolic murmur, gallop, rubs, systolic murmur - GI/Abdominal GI/Abdominal exam: Present: normal bowel sounds, soft, tenderness (mild), no peritoneal signs. Absent: distended - Extremities Exam Extremities exam: Present: warm, radial pulses palpable and symmetrical. Absent : calf tenderness, cyanotic, pedal edema - Neurological Exam Neurological exam: Present: alert, no focal deficits. Absent: facial droop, speech deficit - Skin Skin exam: Present: dry, intact <Ish-Matovelle,Denis Evette - Last Filed: 05/07/17 10:10> Date of Encounter: 05/07/17 Procedures/tests Complete & Pending: Procedures Performed prior 72 hours Category Date Time Status pelvic ultrasound complete [US pelvic complete] [US] Exams 05/06/17 09:00 Completed Routine Date of admission: 05/05/17 22:42 Primary care physician: Kaylah Mckeon CNP Hospital course: Ms. Berry is a 36 year old female - Time Spent with Patient Total time spent providing and/or coordinating discharge services: - Constitutional Vitals: Temp Pulse Resp BP Pulse Ox 98.3 F 69 15 102/70 94 05/07/17 06:46 05/07/17 06:46 05/07/17 06:46 05/07/17 06:46 05/07/17 06:46 - Attending Attestation Possible acute bacterial gastroenteritis CT scan was reviewed personally and shows thickening of the day while of the small bowel compatible with possible enteritis Continue ciprofloxacin and Flagyl orally as an outpatient Stable to be discharged Time spent on this discharge: 40 minutes I examined this patient and my medical decision-making was reviewed with the Resident Physician. I agree with the documented findings, disposition and treatment plan as described except to the extent set forth below.
[2017-05-07] MEDS: Aspirin Enteric Coated 81 MG Tablet PO SCH (09:06)
[2017-05-07] MEDS: Sildenafil Citrate 20 MG TABLET PO SCH (09:07)
[2017-05-07] MEDS: FLUoxetine 20 MG CAPSULE PO SCH (09:07)
--- NOTE | 2017-05-07 10:30 | General Surgery Progress Note ---
Date of Encounter: 05/07/17 Time of Encounter: 10:15 Subjective Patient reports: feels better, pain is less Narrative: General Surgery - Patient feeling much better; abdominal pain pain resolved. No nausea or vomiting since admission. Tolerating clear liquids but yet to be given and solid food. The patient continues to be afebrile, currently 98.3; pulse 69, respirations 15, blood pressure stable at 102/70. Lungs: Clear to auscultation; no abdominal pain on deep inspiration Abdomen: Soft, nontender. No obvious intra-abdominal masses or hepatosplenomegaly. No rebound. Bowel sounds active. No recorded bowel movements since admission Laboratories: White count has fallen to 3.4; hemoglobin 11.7 and hematocrit 36.5 - likely reduced due to IV fluids Electrolytes, BUN, creatinine within normal limits; hypokalemia has not recurred, currently potassium 3.7 Impression/Plan/Recommendations: Resolution of nausea vomiting or abdominal pain Abdominal pain most likely due to either infectious etiology such as enteritis versus IBD With resolution of abdominal pain, can advance to regular diet Continue Cipro and Flagyl (orally) to complete a 10-14 day course of therapy Objective Vital Signs - Last 8 Hours Temp Pulse Resp BP Pulse Ox 05/07/17 06:46 98.3 F 69 15 102/70 94 05/07/17 03:07 98.1 F 69 16 105/69 95 Intake and Output 05/06/17 05/07/17 05/07/17 23:59 07:59 15:59 Intake Total 1500 / 1500 1350 / 1350 300 / 300 Output Total 1500 / 1500 550 / 550 Balance 0 / 0 800 / 800 300 / 300 Intake: IV Fluids 900 / 900 1350 / 1350 300 / 300 KCl 10mEq in D5-0.45 NaCl 10 900 / 900 950 / 950 meq In 1,000 ml @ 100 mls/hr IVC .Q10H RACHAEL Rx#:[id number] Cipro Premix 400 MG/200 ML 400 200 / 200 200 / 200 mg In 200 ml @ 200 mls/hr IVPB Q12HR RACHAEL Rx#:[id number] Flagyl Premix 500 MG/100 ML 500 200 / 200 100 / 100 mg In 100 ml @ 100 mls/hr IVPB Q6H RACHAEL Rx#:[id number] Oral 600 / 600 0 / 0 Output: Urine 1500 / 1500 550 / 550 Other: Meal Dinner Weight 84.005 kg Patient Weight 05/07/17 23:59 Weight 84.005 kg - Labs 05/07/17 05:41 05/07/17 05:41 Diabetes panel 05/07/17 Range/Units 05:41 Sodium 137 (136-145) mEq/L Potassium 3.7 (3.5-5.1) mEq/L Chloride 107 (98-107) mEq/L Carbon Dioxide 25 (23-29) mEq/L BUN 4 L (6-20) mg/dL Creatinine 0.83 (0.60-1.20) mg/dL Glucose 107 H (70-105) mg/dL Calcium 8.5 L (8.6-10.3) mg/dL Calcium panel 05/07/17 Range/Units 05:41 Calcium 8.5 L (8.6-10.3) mg/dL Pituitary panel 05/07/17 Range/Units 05:41 Sodium 137 (136-145) mEq/L Potassium 3.7 (3.5-5.1) mEq/L Chloride 107 (98-107) mEq/L Carbon Dioxide 25 (23-29) mEq/L BUN 4 L (6-20) mg/dL Creatinine 0.83 (0.60-1.20) mg/dL Glucose 107 H (70-105) mg/dL Calcium 8.5 L (8.6-10.3) mg/dL Adrenal panel 05/07/17 Range/Units 05:41 Sodium 137 (136-145) mEq/L Potassium 3.7 (3.5-5.1) mEq/L Chloride 107 (98-107) mEq/L Carbon Dioxide 25 (23-29) mEq/L BUN 4 L (6-20) mg/dL Creatinine 0.83 (0.60-1.20) mg/dL Glucose 107 H (70-105) mg/dL Calcium 8.5 L (8.6-10.3) mg/dL Consult Discharge Plan - Plan Additional Instructions: Please follow up with your PCP within 1 week of discharge Take antibiotics for additional 5 days Referrals: Kaylah Mckeon, KANDACE [Primary Care Provider] - 05/14/17 1:00 pm Prescriptions: Ondansetron ODT [Zofran ODT] 4 mg SL Q4HR #20 tab.rapdis Ciprofloxacin [Cipro] 500 mg PO BID #10 tablet metroNIDAZOLE [Flagyl] 500 mg PO TID #15 tablet
== END 2017-05-07 14:40 | disposition home or self-care (01) ==
LOC: 3ANU 19:08 → EMEROO 19:08 → 3ANU 23:36
PROVIDERS: ADMIT Pediatrics; ATTEND Internal Medicine